=== PATIENT | male | born 1970 | race Two or more races ===

== ENCOUNTER 2023-08-25 13:56 | Emergency (ER) | payer MEDICAID ==
[~2023-08-25] VITALS: Ht 172.7 cm; Wt 118.0 kg
[2023-08-25] MEDS ORDERED: LORazepam 0.5 MG TAB PO ONE (16:30)
[2023-08-25 18:35] LABS: Urine Bacteria FEW /hpf (None Seen); Urine Blood Negative /uL (Negative); Urine Clarity HAZY (Clear); Urine Color Colorless (Yellow); Urine Mucus FEW (None Seen); Urine Protein, UAD 1+ (Negative); Urine Sperm PRESENT /hpf (None Seen); Urine Urobilinogen Normal (Negative); Urine WBC 1 /hpf (0 - 3)
[2023-08-25 20:06] VITALS: BP 134/77; PULSE 98; RESP 16; TEMP 98.5; O2SAT 98
== END 2023-08-25 19:10 | disposition home or self-care (01) ==
LOC: EDBD 13:56 → ER 13:56
DX: R56.9 Unspecified convulsions (principal); F41.9 Anxiety disorder, unspecified; I10 Essential (primary) hypertension
CPT/HCPCS: 81001; 82962